=== PATIENT | male | born 1975 | race Caucasian/White ===

== ENCOUNTER 2017-02-05 09:05 | Emergency (ER) | payer OTHER ==
[2017-02-05 09:10] VITALS: BP 145/93; PULSE 104; TEMP 98.6; BMI 25.8
--- NOTE | 2017-02-05 09:58 | PDOC ---
History of Present Illness - General Chief Complaint: Pain Stated Complaint: RT SWOLLEN ARM Time Seen by Provider: 02/05/17 09:26 History Source: Patient Exam Limitations: No Limitations - History of Present Illness Initial Comments: 02/05/17 09:48 Patient was recently discharged yesterday from [facility] where he was admitted for 4 days for pancreatitis. States approximately 2 hours after IV was discontinued and patient left hospital noted swelling and tenderness to his right antecubital area. Since that time became more painful more swollen. States use ice packs on it last night but woke up this morning with less swelling however more pain. Denies fever, chills, nausea vomiting . Denies numbness or tingling to hands or feet Timing/Duration: 24 hours Severity: mild, moderate Associated Symptoms: denies: fever/chills, headaches Past History - Travel Traveled outside of the country in the last 30 days: No Close contact w/someone who was outside of country & ill: No - Past Medical History Allergies/Adverse Reactions: Allergies Allergy/AdvReac Type Severity Reaction Status Date / Time No Known Allergies Allergy Verified 02/05/17 09:10 Home Medications: Ambulatory Orders Clindamycin [Cleocin -] 300 mg PO TID #21 capsule 02/05/17 Other medical history: PANCREATITIS - Psycho/Social/Smoking Cessation Hx Suicidal Ideation: No Smoking History: Never smoked Information on smoking cessation initiated: No Review of Systems - Review of Systems Able to Perform ROS?: Yes Is the patient limited Green[place]ic proficient: Yes Constitutional: Yes: Symptoms Reported, See HPI, Malaise. No: Fever HEENTM: Yes: See HPI. No: Symptoms Reported Integumentary: Yes: Symptoms Reported, See HPI, Bruising, Erythema, Lesions Neurological: No: Symptoms reported All Other Systems: Reviewed and Negative *Physical Exam - Vital Signs Last Vital Signs Temp Pulse Resp BP Pulse Ox 98.6 F 104 H 18 145/93 99 02/05/17 09:07 02/05/17 09:07 02/05/17 09:07 02/05/17 09:07 02/05/17 09:07 - Physical Exam General Appearance: Yes: Nourished, Appropriately Dressed, Apparent Distress, Mild Distress HEENT: positive: SARAH, Normal ENT Inspection, Normal Voice, TMs Normal, Pharynx Normal Extremity: positive: Normal Capillary Refill. negative: Normal Inspection, Normal Range of Motion (limited range of motion and swelling with firm tender induration at puncture wound site, site of IV insertion. Has full range of motion of fingers, strong grasp flexion and extension, and is able to flex and extend elbow but is painful secondary to the cellulitis.) Integumentary: positive: Normal Color, Dry, Warm, Erythema, Swelling ( approximately 10 cm circumferential to IV site. No streaking, and is warm to touch without fluctuance) Neurologic: positive: laboratory associate II-XII NML intact, Fully Oriented, Alert, Normal Mood/ Affect, Normal Response, Motor Strength 09/29 Medical Decision Making - Medical Decision Making 02/05/17 10:01 Cellulitis/phlebitis post IV site. We will treat with clindamycin and have follow-up with PMD this week. *DC/Admit/Observation/Transfer Diagnosis at time of Disposition: Phlebitis after infusion Qualifiers: Encounter type: initial encounter Qualified Code(s): T80.1XXA - Vascular complications following infusion, transfusion and therapeutic injection, initial encounter - Discharge Dispostion Disposition: HOME Condition at time of disposition: Stable Admit: No - Prescriptions Prescriptions: Clindamycin [Cleocin -] 300 mg PO TID #21 capsule - Patient Instructions Printed Discharge Instructions: DI for Cellulitis -- Adult Additional Instructions: Rest, keep area elevated. Avoid strenuous activity or exercise until wound is healed Use hot soaks to area to bring more blood to the surface and encourage drainage May use Tylenol or Motrin for mild pain relief Continue all medications as prescribed Followup with private physician in 2-3 days for wound check Return to emergency Department for worsening swelling, pain, redness, fevers as needed - Post Discharge Activity Work/School Note: Back to Work
== END 2017-02-05 09:59 | disposition home or self-care (01) ==
LOC: JERFT 09:05
DX: T80.1XXA Vascular complications following infusion, transfusion and therapeutic injection, initial encounter (principal)
CPT/HCPCS: 99281-25

== ENCOUNTER 2018-12-25 10:22 | Emergency (ER) | payer OTHER ==
[2018-12-25 10:27] VITALS: BP 139/97; PULSE 71; TEMP 98.3; BMI 27.3
[2018-12-25] MEDS ORDERED: DEXAMETHASONE SOD PHOSPHATE 10 MG/1 ML VIAL IM ONE (10:37)
[2018-12-25] MEDS ORDERED: DIPHTH,PERTUSS(ACELL),TET 0.5 ML DISP.SYRIN IM ONE ×2 (10:38→10:45)
--- NOTE | 2018-12-25 10:40 | PDOC ---
History of Present Illness - General Chief Complaint: Bite Stated Complaint: STUNG BY A BEE Time Seen by Provider: 12/25/18 10:27 History Source: Patient (Patient walked in complaining of bee (wasp) stings x 2 on right judaism and lower leg while outdoors workong) Exam Limitations: No Limitations - History of Present Illness Timing/Duration: reports: just prior to arrival Severity: Yes: mild, moderate Location: reports: extremities, face Respiratory Risk Factors: reports: insect sting Modifying Factors: improves with: antihistamine Past History - Travel Traveled outside of the country in the last 30 days: No Close contact w/someone who was outside of country & ill: No - Past Medical History Allergies/Adverse Reactions: Allergies Allergy/AdvReac Type Severity Reaction Status Date / Time No Known Allergies Allergy Verified 12/25/18 10:23 Home Medications: Ambulatory Orders Lipase/Protease/Amylase [Gloriaon Dr 24,000 Units Capsule] 1 each PO TID 12/25/18 Ranitidine HCl [Zantac] 150 mg PO DAILY 12/25/18 Triamcinolone 0.5% Cream [Aristocort] 10 gm TP TID #2 tube 12/25/18 CVA: No COPD: No CHF: No Other medical history: PANCREATITIS - Suicide/Smoking/Psychosocial Hx Smoking History: Current some day smoker Number of Cigarettes Smoked Daily: 1 Information on smoking cessation initiated: Yes Hx Alcohol Use: Yes (DAILY) Drug/Substance Use Hx: No Review of Systems - Review of Systems Able to Perform ROS?: Yes Is the patient limited Senegalese proficient: Yes Constitutional: Yes: Symptoms Reported, Malaise HEENTM: No: Symptoms Reported, See HPI, Eye Pain, Blurred Vision, Tearing, Recent change in vision, Double Vision, Cataracts, Ear Pain, Ocular Prothesis, Ear Discharge, Nose Pain, Nose Congestion, Tinnitus, Nose Bleeding, Hearing Loss , Throat Pain, Throat Swelling, Mouth Pain, Dental Problems, Difficulty Swallowing, Mouth Swelling, Other Respiratory: No: Symptoms reported, See HPI, Cough, Orthopnea, Shortness of Breath, SOB with Exertion, SOB at Rest, Stridor, Wheezing, Productive cough, Hemoptysis, Other Cardiac (ROS): No: Symptoms Reported, See HPI, Chest Pain, Edema, Irregular Heart Rate, Lightheadedness, Palpitations, Syncope, Chest Tightness, Other ABD/GI: No: Symptoms Reported, See HPI, Abdominal Distended, Abd. Pain w/ defecation, Blood Streaked Bowels, Constipated, Diarrhea, Difficulty Swallowing , Nausea, Poor Appetite, Poor Fluid Intake, Rectal Bleeding, Vomiting, Indigestion, Abdominal cramping, Tarry Stools, Other Integumentary: Yes: Symptoms Reported, See HPI, Other (2 insect bites) Psychiatric: No: Anxiety, Depression, Frequent Crying, Stressors, Sleep Pattern Change, Emotional Problems, Mood Swings, Change in Appetite, Other All Other Systems: Reviewed and Negative *Physical Exam - Vital Signs Last Vital Signs Temp Pulse Resp BP Pulse Ox 98.3 F 71 17 139/97 99 12/25/18 10:22 12/25/18 10:22 12/25/18 10:22 12/25/18 10:22 12/25/18 10:22 - Physical Exam General Appearance: Yes: Nourished, Appropriately Dressed, Mild Distress, Moderate Distress HEENT: positive: Normal ENT Inspection, Other (Normal voice). negative: Muffled /Hoarse voice Neck: positive: Supple Respiratory/Chest: positive: Lungs Clear, Normal Breath Sounds *DC/Admit/Observation/Transfer Diagnosis at time of Disposition: Insect bites and stings Qualifiers: Encounter type: initial encounter Qualified Code(s): W57.XXXA - Bitten or stung by nonvenomous insect and other nonvenomous arthropods, initial encounter - Discharge Dispostion Disposition: HOME Condition at time of disposition: Improved Decision to Admit order: No - Prescriptions Prescriptions: Triamcinolone 0.5% Cream [Aristocort] 10 gm TP TID #2 tube - Referrals Referrals: Danny Morgan [Primary Care Provider] - - Patient Instructions Printed Discharge Instructions: How to Care for an Insect Bite or Sting - Post Discharge Activity
[2018-12-25] MEDS ORDERED: DEXAMETHASONE SOD PHOSPHATE 10 MG/1 ML VIAL ONE (10:45)
[2018-12-25] MEDS ORDERED: IBUPROFEN 600 MG TABLET (FP) PO ONE ×2 (10:53→10:54)
== END 2018-12-25 11:34 | disposition home or self-care (01) ==
LOC: FER 10:22
PROC: 3E0234Z Introduction of Serum, Toxoid and Vaccine into Muscle, Percutaneous Approach (ICD-10-PCS; principal; 2018-12-25)
PROC: 3E033GC Introduction of Other Therapeutic Substance into Peripheral Vein, Percutaneous Approach (ICD-10-PCS; 2018-12-25)
DX: S80.862A Insect bite (nonvenomous), left lower leg, initial encounter (principal); S00.86XA Insect bite (nonvenomous) of other part of head, initial encounter; W57.XXXA Bitten or stung by nonvenomous insect and other nonvenomous arthropods, initial encounter; Y93.89 Activity, other specified; Y92.89 Other specified places as the place of occurrence of the external cause
CPT/HCPCS: 90471; 90715; 96372; 99281-25; J1100